=== PATIENT | female | born 1990 | race Caucasian/White ===

== ENCOUNTER 2025-07-04 16:40 | Emergency (ER) | payer MEDICAID, SELFPAY ==
[2025-07-04 16:44] VITALS: BP 129/76; PULSE 104; RESP 16; O2SAT 98
[2025-07-04 16:49] VITALS: BP 129/76; PULSE 104; RESP 16; O2SAT 98
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
[2025-07-04 17:40] LABS: Glucose Negative (Negative)
[2025-07-04 17:46] LABS: RBC 20-50 HPF (0-2); WBC >50 HPF (0-5)
[2025-07-04 18:46] VITALS: BP 129/76; PULSE 104; RESP 16; O2SAT 98
== END 2025-07-04 18:51 | disposition home or self-care (01) ==
PROVIDERS: Emergency Provider Physician Assistant
DX: R22.0 Localized swelling, mass and lump, head (principal); K04.7 Periapical abscess without sinus; Z59.41 Food insecurity; Z59.811 Housing instability, housed, with risk of homelessness; Z59.87 Material hardship due to limited financial resources, not elsewhere classified
CPT/HCPCS: 99284; 99283; 81025; 70110; 81003; 81015